=== PATIENT | male | born 1990 | race Caucasian/White ===

== ENCOUNTER 2017-12-09 08:42 | Emergency (ER) | payer OTHER ==
[2017-12-09 08:54] VITALS: BP 114/69
--- NOTE | 2017-12-09 09:50 | XRAY Preliminary Report ---
Exam: XR KNEE 4 VIEW RT IMPRESSION: No osseous abnormality. [facility] SITE ID: [id number]
--- NOTE | 2017-12-09 09:51 | XRAY Report ---
EXAM: RIGHT KNEE RADIOGRAPHY EXAM DATE: 12/09/2017 09:20 AM. CLINICAL HISTORY: Right knee injury. COMPARISON: MRI 04/05/2009. TECHNIQUE: 4 views. FINDINGS: Bones: Normal. No fractures or bone lesions. Joints: Normal. No effusion. No subluxations. Soft Tissues: Anterior soft tissue swelling, primarily infrapatellar. IMPRESSION: No osseous abnormality. [facility] Referring Provider Line: [phone] SITE ID: [id number]
--- NOTE | 2017-12-09 09:59 | ED Physician Documentation ---
History of Present Illness - Stated complaint Stated Complaint: FOOT INJURY - Chief complaint Chief Complaint: Ext Problem - Additonal information Additional information: hx from pt 27 male hit knee on a lug nut of a truck more painful today Review of Systems Musculoskeletal: reports: Pain with weight bearing PD PAST MEDICAL HISTORY - Past Medical History Past Medical History: No Psych: ADD/ADHD - Past Surgical History Past Surgical History: No - Present Medications Home Medications: Ambulatory Orders Medication Instructions Recorded Confirmed No Known Home Medications [No 09/28/13 09/28/13 Known Home Medications] - Allergies Allergies/Adverse Reactions: Allergies Allergy/AdvReac Type Severity Reaction Status Date / Time No Known Drug Allergies Allergy Verified 09/28/13 17:51 - Social History Does the pt smoke?: Yes Smoking Status: Current every day smoker Does the pt drink ETOH?: Yes Does the pt have substance abuse?: Yes - Immunizations Immunizations are current?: No - POLST Patient has POLST: No PD ED PE NORMAL - Vitals Vital signs reviewed: Yes - Extremities Extremities: Other (R knee with abrasion inf to patella with edema, TTP inf patella, patellar tendon prox tibia, no deformity, no ACL MCL LCL laxity, no pop with meniscal testing MSV intact) Results - Vitals Vitals: Vital Signs - 24 hr 12/09/17 08:51 Temperature 37.1 C Heart Rate 68 Respiratory 14 Rate Blood Pressure 114/69 O2 Saturation 99 Oxygen O2 Source Room air - Rads (name of study) knee Radiology: See rad report (neg) Departure - Departure Disposition: 01 Home, Self Care Clinical Impression: Knee pain, right Qualifiers: Chronicity: acute Qualified Code(s): M25.561 - Pain in right knee Condition: Good Comments: The xray is fine - no fractures Recommend an CARTER to decrease swelling, ice for twenty minutes three times a day , motrin and tylenol as needed Also crutches as needed to decrease weight bearing stress If still too painful to bear weight normally in two weeks, please see your PMD for consideration of further imaging Forms: Activity restrictions
== END 2017-12-09 11:01 | disposition home or self-care (01) ==
LOC: ED 08:42
DX: M25.561 Pain in right knee (principal); F17.200 Nicotine dependence, unspecified, uncomplicated; W22.8XXA Striking against or struck by other objects, initial encounter; Y93.89 Activity, other specified
CPT/HCPCS: 1040M; 73564; 99282; 99283

== ENCOUNTER 2023-10-24 07:13 | Outpatient (CLI) | payer OTHER ==
--- NOTE | 2023-10-26 09:41 | MRI Report ---
PROCEDURE: Shoulder LT WO INDICATIONS: L SHOULDER LESION TECHNIQUE: Noncontrast oblique coronal T2 fast spin echo with fat saturation, oblique sagittal T1 spin echo and T2 fast spin echo with fat saturation, axial T1 spin echo and T2 fast spin echo with fat saturation t hrough the shoulder. COMPARISON: 10/31/2010 FINDINGS: Image quality: Excellent. Rotator cuff: There is low-grade bursal surface tearing of the posterior supraspinatus tendon at the humeral insertion site extending the muscular tendinous junction. Low-grade intrasubstance and bursal surface tearing of the anterior, mid, posterior infraspinatus tendon at the humeral insertion site e xtending the muscular tendinous junction. Subscapularis and teres minor tendons are intact. No rotato r cuff atrophy. No rotator cuff muscle atrophy on sagittal images. Bones and bursae: No bone marrow contusions or fractures. Mild acromioclavicular joint degeneration. The acromion demonstrates conventional anatomy, without an os acromiale. No pathologic subacromial /subdeltoid bursal fluid is present. Capsule and soft tissues: In the absence of intra-articular contrast, the labrum and glenohumeral li gaments appear intact. There is incomplete visualization of the previously seen high T2 signal inten sity focus within the left posterior chest wall, visualized portions of which measure roughly 13 mm t ransverse, which appears to demonstrate internal high T1 signal intensity. This lesion does not appea r to be significantly changed. The long head of the biceps tendon demonstrates normal location and mo rphology. The rotator interval appears normal, without fibrosis. The coracohumeral ligament is norm al in thickness. IMPRESSION: 1. No definite change in incompletely visualized left posterior chest wall lesion. This lesion appear s to contain macroscopic fat, and may represent an atypical intramuscular lipoma versus hemangioma. 2. Acromioclavicular joint osteoarthritis. 3. Low-grade tearing of the supraspinatus and infraspinatus tendons. Reviewed by: Jacobo Leonardo MD on 10/26/2023 9:40 AM PDT Approved by: Jacobo Leonardo MD on 10/26/2023 9:40 AM PDT Station ID: [id number]
== END 2023-10-24 07:14 | disposition home or self-care (01) ==
LOC: DI 07:13
PROVIDERS: ATTEND Family Medicine
DX: M75.92 Shoulder lesion, unspecified, left shoulder (principal); M19.012 Primary osteoarthritis, left shoulder; M75.112 Incomplete rotator cuff tear or rupture of left shoulder, not specified as traumatic

== ENCOUNTER 2024-04-19 13:24 | Emergency (ER) | payer OTHER ==
--- NOTE | 2024-04-19 13:39 | ED Physician Documentation ---
History of Present Illness - Stated complaint Stated Complaint: LT HAND INJ - Chief complaint Chief Complaint: Laceration - History obtained from History obtained from: Patient - Additonal information Additional information: Patient works in oyster processing. Today he was shucking oysters when the shaking knife slipped and he accidentally stabbed himself between the thumb and the index finger of the left hand. Bleeding controlled with gentle pressure. The patient has normal sensation of the hand, and has good range of motion of the fingers and thumb. He is unsure of his last tetanus. He denies any underlying comorbid conditions. PD PAST MEDICAL HISTORY - Past Medical History Past Medical History: Yes Psych: ADD/ADHD - Past Surgical History Past Surgical History: No - Present Medications Home Medications: Ambulatory Orders Medication Instructions Recorded Confirmed Doxycycline [Vibramycin] 100 mg PO BID #14 tablet 04/19/24 buPROPion HCL [Bupropion Xl] 300 mg PO DAILY 04/19/24 04/19/24 - Allergies Allergies/Adverse Reactions: Allergies Allergy/AdvReac Type Severity Reaction Status Date / Time No Known Drug Allergies Allergy Verified 04/19/24 13:34 - Social History Does the pt smoke?: Yes Smoking Status: Current every day smoker Does the pt drink ETOH?: Yes Does the pt have substance abuse?: Yes - Immunizations Immunizations are current?: No - POLST Patient has POLST: No PD ED PE NORMAL - Vitals Vital signs reviewed: Yes - General General: Alert and oriented X 3, No acute distress, Well developed/nourished - Derm Derm: Normal color, Warm and dry, Other (There is a puncture deborah the base of the second MCP palmar surface between the thumb and the index finger. Not actively bleeding. Approximately 3 mm in length.) - Extremities Extremities: No deformity, Normal ROM s pain, Other (Patient has normal district attorney, flexion extension of thumb and all fingers in the left hand. 2+ radial pulses) Results - Vitals Vitals: Vital Signs - 24 hr 04/19/24 13:32 Temperature 36.7 C Heart Rate 69 Respiratory 20 Rate Blood Pressure 124/84 H O2 Saturation 100 Oxygen O2 Source Room air - Rads (name of study) No standard instances Relevant Findings:: Final report received PD Medical Decision Making - ED course Complexity details: reviewed results, d/w patient ED course: 33-year-old male presented with a work-related injury in which he accidentally punctured his left hand with an oyster shucking knife. Puncture is at the base of the second MCP between the thumb and the index finger. He does not appear to have any tendon involvement on exam As he has good range of motion in the hand fingers and thumb. I did obtain a x-ray to evaluate for possible foreign body and there is a tiny possible foreign body though not retrievable on exam. No bony injury. I discussed with patient that the main concern would be risk of infection particularly with a freshwater exposure and oyster exposure. I advised him to keep the wound clean with gentle soap and water and monitor very closely, if he should develop any redness, swelling, purulent drainage, fever or new concerns he should return immediately to the hospital. I am going to put him on doxycycline to reduce the chance of Infection. The wound was cleaned thoroughly here with normal saline and Hibiclens and a light pressure nonstick dressing was applied. The wound did not require suture closure. Patient was given updated Tdap. L&I paperwork was completed. Departure - Departure Disposition: 01 Home, Self Care Clinical Impression: Puncture wound Condition: Good Instructions: ED Wound Puncture General Prescriptions: Doxycycline [Vibramycin] 100 mg PO BID #14 tablet Comments: You sustained a deep puncture wound to the left hand. Thankfully it does not seem that you have any damage to ligaments as you have good range of motion, and the bone looked okay on xray. The main concern is potential for infection so please keep this wound clean with gentle soap and water and monitor closely. I am going to put you on antibiotics to reduce the chance of infection but if you develop any redness, swelling, purulent drainage, fever or new concerns, please return to the emergency department. We did give you a tetanus booster today and this is good for 10 years. Medication sent to [facility] Forms: PCP List Discharge Date/Time: 04/19/24 14:20
[2024-04-19 13:40] VITALS: BP 124/84; O2SAT 100
[2024-04-19] MEDS: TETANUS/DIPHTHERIA/PERTUSSIS 0.5 ML SYRINGE IM ONE (13:46)
--- NOTE | 2024-04-19 14:12 | XRAY Report ---
PROCEDURE: Hand 1-2V LT INDICATIONS: puncture wound TECHNIQUE: 3 views of the hand(s) acquired. COMPARISON: None. FINDINGS: Bones: No fractures or dislocations. No suspicious bony lesions. Soft tissues: Tiny calcification within soft tissue between first and second metacarpal shaft is see n with small amount of adjacent soft tissue air. IMPRESSION: No acute left hand fracture or dislocation. Puncture wound involving soft tissue between first and second metacarpal shaft with possible tiny for eign body in the soft tissue as above. Reviewed by: Glenn Denney MD on 04/19/2024 2:10 PM PDT Approved by: Glenn Denney MD on 04/19/2024 2:10 PM PDT Station ID: [id number]
== END 2024-04-19 14:20 | disposition home or self-care (01) ==
LOC: ED 13:24
DX: S61.432A Puncture wound without foreign body of left hand, initial encounter (principal); W26.0XXA Contact with knife, initial encounter; Y93.G1 Activity, food preparation and clean up; Z23 Encounter for immunization; F17.200 Nicotine dependence, unspecified, uncomplicated
CPT/HCPCS: 1040M; 73120; 90471; 90715; 99283; 99284